=== PATIENT | female | born 1985 | race African-American/Black ===

== ENCOUNTER 2021-06-19 17:44 | Emergency (ER) | payer SELFPAY ==
[~2021-06-19] VITALS: Ht 162.6 cm; Wt 54.0 kg
[2021-06-19 21:41] VITALS: BP 128/74
== END 2021-06-19 21:44 | disposition home or self-care (01) ==
LOC: ER 17:44
DX: R56.9 Unspecified convulsions (principal)
CPT/HCPCS: 93005; 99283; Z7610

== ENCOUNTER 2022-02-27 19:39 | Inpatient (IN) | payer OTHER, MEDICAID ==
[~2022-02-27] VITALS: Ht 167.6 cm; Wt 65.9 kg
[2022-02-27 20:23] LABS: HEMATOCRIT. 36.6 % (36.0-48.0); HEMOGLOBIN. 12.2 g/dL (12.0-16.0); MEAN CORPUSCULAR HEMOGLOBIN 32.2 pg (28.0-32.0); MEAN CORPUSCULAR VOLUME 96.6 fL (81.0-99.0); MEAN PLATELET VOLUME 6.8 fl (7.4-10.4); PLATELET 282 x1000/uL (130-400); RED BLOOD CELL COUNT 3.79 mill/uL (4.2-5.4); RED CELL DISTRIBUTION WIDTH 11.8 % (11.6-14.6)
[2022-02-27 20:26] LABS: CHLORIDE 102 mEq/L (98-107)
[2022-02-27 20:35] LABS: ETHANOL BLOOD < 10 mg/dL
[2022-02-27] MEDS ORDERED: LEVETIRACETAM 500MG PREMIX 100 ML IV ONE ×3 (21:30)
[2022-02-27 22:11] LABS: PLATELET ESTIMATE NORMAL
[2022-02-27] MEDS ORDERED: LEVETIRACETAM 1000MG PREMIX 100 ML IV NR (22:45)
[2022-02-27 23:24] LABS: CLARITY URINE CLEAR (CLEAR); COLOR URINE YELLOW (YELLOW); KETONES URINE NEGATIVE (NEGATIVE); LEUKOCYTE ESTERASE URINE TRACE (NEGATIVE); NITRITE URINE NEGATIVE (NEGATIVE); OCCULT BLOOD URINE NEGATIVE (NEGATIVE); PROTEIN URINE TRACE (NEGATIVE)
[2022-02-27 23:40] LABS: *AMPHETAMINES SCREEN URINE NEGATIVE (NEGATIVE); *BARBITURATES SCREEN URINE NEGATIVE (NEGATIVE); *COCAINE SCREEN URINE NEGATIVE (NEGATIVE); CANNABINOID URINE SCREEN NEGATIVE (NEGATIVE); METHADONE URINE SCREEN NEGATIVE (NEGATIVE); OPIATES URINE SCREEN NEGATIVE (NEGATIVE); PHENCYCLIDINE URINE SCREEN NEGATIVE (NEGATIVE)
[2022-02-27 23:44] LABS: *BENZODIAZEPINES SCREEN URINE PRESUMTIVE POSITIVE (NEGATIVE)
[2022-02-28 08:30] VITALS: BP 109/62
[2022-02-28] MEDS ORDERED: ACETAMINOPHEN 325MG TABLET PO PRN (09:45)
[2022-02-28] MEDS ORDERED: POTASSIUM CHLORIDE 20MEQ TABLET SR PO NR (09:45)
[2022-02-28] MEDS ORDERED: ONDANSETRON HCL 4MG/2ML INJ IV PRN (09:45)
[2022-02-28] MEDS: LEVETIRACETAM 500MG PREMIX 100 ML IV SCH ×2 (13:57→21:15)
[2022-02-28] MEDS: DEXAMETHASONE 4MG/ML 1ML VIAL IV SCH ×2 (14:01→21:15)
[2022-02-28 20:00] VITALS: BP 120/68
[2022-03-01] VITALS (7 sets, daily range): BP systolic 112–127; BP diastolic 53–92
[2022-03-01] MEDS: DEXAMETHASONE 4MG/ML 1ML VIAL IV SCH ×5 (06:07→22:27)
[2022-03-01] MEDS ORDERED: METR375C2 MT (10:13)
[2022-03-01] MEDS: LEVETIRACETAM 500MG PREMIX 100 ML IV SCH ×2 (10:45→21:04)
[2022-03-01] MEDS ORDERED: GADOTERATE MEGLUMINE 5 MMOL/10 ML VIAL IV ONE (14:13)
[2022-03-01] MEDS ORDERED: IOHEXOL-300 100 ML BOTTLE ONE (15:11)
[2022-03-01] MEDS: METRONIDAZOLE 500MG TABLET PO SCH ×2 (15:23→21:04)
[2022-03-01] MEDS ORDERED: KEPP500 MT (16:13)
[2022-03-02] VITALS: BP 122/61
[2022-03-02 04:00] VITALS: BP 111/51
[2022-03-02] MEDS: DEXAMETHASONE 4MG/ML 1ML VIAL IV SCH ×2 (04:52→12:44)
[2022-03-02 08:00] VITALS: BP 114/63
[2022-03-02] MEDS: METRONIDAZOLE 500MG TABLET PO SCH (09:08)
[2022-03-02] MEDS: LEVETIRACETAM 500MG PREMIX 100 ML IV SCH (09:10)
[2022-03-02 12:00] VITALS: BP 123/71
[2022-03-02 14:02] VITALS: BP 123/71
[2022-03-02] MEDS ORDERED: LEVETIRACETAM 500MG TABLET PO SCH (21:00)
== END 2022-03-02 14:42 | disposition home or self-care (01) | DRG 101 ==
LOC: ER 19:39 → 8WST 02-28 00:04 → ENRESERV 02-28 06:48
PROVIDERS: ADMIT Internal Medicine; ATTEND Internal Medicine
DX: G40.409 Other generalized epilepsy and epileptic syndromes, not intractable, without status epilepticus (principal); E44.1 Mild protein-calorie malnutrition; E87.6 Hypokalemia; K83.8 Other specified diseases of biliary tract; K80.20 Calculus of gallbladder without cholecystitis without obstruction; G31.89 Other specified degenerative diseases of nervous system; Z91.19 Patient's noncompliance with other medical treatment and regimen; Z79.899 Other long term (current) drug therapy; Z68.23 Body mass index [BMI] 23.0-23.9, adult
CPT/HCPCS: 36415; 70553; 71260; 74177; 80053; 80305; 80320; 81003; 83605; 85025; 93005; 99291; A9577; J1100; J1953; Q9967; G0480